=== PATIENT | male | born 1995 | race American Indian/Alaskan Native ===

== ENCOUNTER 2017-09-03 13:29 | Emergency (ER) | payer MEDICAID ==
[2017-09-03 13:49] VITALS: RESP 18
--- NOTE | 2017-09-03 14:33 | ED PDOC ---
Arrival/HPI - General Chief Complaint: Allergic Reaction Time Seen by Provider: 09/03/17 13:56 Historian: Patient - History of Present Illness Narrative History of Present Illness (Text): 09/03/17 14:30 21yo male with no PMhx who present with complaint of rash to his mid upper back x few days. Also report nausea and vomiting x 4days. States symptoms started s/ p eating out. He denies abdominal pain, diarrhea, constipation, tongue swelling , stridor, urinary symptoms, back pain, fever, neck pain, headache, any other complaint. Past Medical History - Provider Review Nursing Documentation Reviewed: Yes - Infectious Disease Hx of Infectious Diseases: None - Psychiatric Hx Substance Use: No Family/Social History - Physician Review Nursing Documentation Reviewed: Yes Family/Social History: Unknown Family HX Smoking Status: Current Some Days Smoker Hx Alcohol Use: No Hx Substance Use: No Allergies/Home Meds Allergies/Adverse Reactions: Allergies No Known Allergies Allergy (Verified 09/03/17 13:50) Review of Systems - Physician Review All systems were reviewed & negative as marked: Yes - Review of Systems Constitutional: Normal Eyes: Normal ENT: Normal Respiratory: Normal Cardiovascular: Normal Gastrointestinal: Nausea, Vomiting. absent: Abdominal Pain, Constipation, Diarrhea, Hematochezia, Hematemesis Genitourinary Male: Normal Musculoskeletal: Normal Skin: Rash, Pruritis Neurological: Normal Endocrine: Normal Hemo/Lymphatic: Normal Psychiatric: Normal Physical Exam Vital Signs Reviewed: Yes Vital Signs Temp Pulse Resp BP Pulse Ox 09/03/17 15:32 98.0 F 65 18 121/73 100 09/03/17 15:06 65 18 121/73 98 09/03/17 13:44 98 F 63 18 122/79 99 Temperature: Afebrile Blood Pressure: Normal Pulse: Regular Respiratory Rate: Normal Appearance: Positive for: Well-Appearing, Non-Toxic, Comfortable Pain Distress: None Mental Status: Positive for: Alert and Oriented X 3 - Systems Exam Head: Present: Atraumatic, Normocephalic Pupils: Present: PERRL Extroacular Muscles: Present: EOMI Conjunctiva: Present: Normal Mouth: Present: Moist Mucous Membranes Neck: Present: Normal Range of Motion Respiratory/Chest: Present: Clear to Auscultation, Good Air Exchange. No: Respiratory Distress, Accessory Muscle Use Cardiovascular: Present: Regular Rate and Rhythm, Normal S1, S2. No: Murmurs Abdomen: Present: Other (soft). No: Tenderness, Distention, Peritoneal Signs, Rebound, Guarding, McBurney's Point Tender, Rovsing's Sign Present Back: Present: Normal Inspection Upper Extremity: Present: Normal Inspection. No: Cyanosis, Edema Lower Extremity: Present: Normal Inspection. No: Edema Neurological: Present: GCS=15, CN II-XII Intact, Speech Normal Skin: Present: Warm, Dry, Rashes (Scaly raised patchy noted on mid upper back), Normal Color Psychiatric: Present: Alert, Oriented x 3, Normal Insight, Normal Concentration Medical Decision Making ED Course and Treatment: 09/03/17 18:31 PT in ED for stated history. He was able to tolerate PO challenge in ED with antiemesis. He was DC with econazole for the fungal rash on his back. Zofran ODT rx given. Referred to his PMD. - Medication Orders Current Medication Orders: Discontinued Medications Famotidine (Pepcid) 20 mg PO STAT STA Stop: 09/03/17 14:11 Last Admin: 09/03/17 14:20 Dose: 20 mg Ondansetron HCl (Zofran Odt) 4 mg PO STAT STA Stop: 09/03/17 14:10 Last Admin: 09/03/17 14:20 Dose: 4 mg Disposition/Present on Arrival - Present on Arrival Any Indicators Present on Arrival: No History of DVT/PE: No History of Uncontrolled Diabetes: No Urinary Catheter: No History of Decub. Ulcer: No History Surgical Site Infection Following: None - Disposition Have Diagnosis and Disposition been Completed?: Yes Diagnosis: Nausea & vomiting, Tinea corporis Disposition: HOME/ ROUTINE Disposition Time: 15:30 Patient Plan: Discharge Condition: STABLE Discharge Instructions (ExitCare): Nausea and Vomiting, Adult, Ringworm (DC) Additional Instructions: Follow up with your Doctor Return to ED for any new or worsening symptoms Prescriptions: Econazole 1% [Spectazole Cr] 15 gm EXT BID #1 tube Famotidine [Pepcid] 20 mg PO DAILY #15 tab Ondansetron ODT [Zofran ODT] 4 mg PO Q6 #6 odt Referrals: [facility] at [facility] [place] [Outside] - Follow up with primary Forms: [employer] (Lao)
[2017-09-03 15:07] VITALS: BP 121/73; PULSE 65
[2017-09-03 15:33] VITALS: TEMP 98; O2SAT 100
== END 2017-09-03 15:33 | disposition home or self-care (01) ==
LOC: ED 13:29 → MERGE 13:29 → ED 15:33
DX: R11.2 Nausea with vomiting, unspecified (principal); B35.4 Tinea corporis

== ENCOUNTER 2017-10-05 13:38 | Emergency (ER) | payer MEDICAID ==
[2017-10-05] MEDS ORDERED: Lidocaine 1% Inj (20ml) IJ STA (14:23)
[2017-10-05 14:52] VITALS: BMI 26.4
--- NOTE | 2017-10-05 14:55 | ED PDOC ---
Arrival/HPI - General Chief Complaint: Abnormal Skin Integrity Time Seen by Provider: 10/05/17 14:03 Historian: Patient - History of Present Illness Narrative History of Present Illness (Text): you were treated in the ED today for uptodate tetanus in the past 5 years and possible unknown type insect bite with right upper area of redness/swelling and otherwise without any nausea/vomiting/headache/dizziness/difficulty breathing/ chest pain/abdomen pain/numbness/tingling/loss of limb function/pain with urination. 10/05/17 14:57 Time/Duration: Other (several days) Symptom Onset: Gradual Symptom Course: Worsening Quality: Aching Severity Level: 1 Activities at Onset: Rest Context: Sitting Past Medical History - Provider Review Nursing Documentation Reviewed: Yes - Travel History Have you recently traveled outside [place] w/in the past 3 mons?: No - Infectious Disease Hx of Infectious Diseases: None - Psychiatric Hx Substance Use: No - Anesthesia Hx Anesthesia: No Hx Anesthesia Reactions: No Hx Malignant Hyperthermia: No Family/Social History - Physician Review Nursing Documentation Reviewed: Yes Family/Social History: No Known Family HX Smoking Status: Current Some Days Smoker Hx Alcohol Use: No Hx Substance Use: No Allergies/Home Meds Allergies/Adverse Reactions: Allergies No Known Allergies Allergy (Verified 09/03/17 13:50) Review of Systems - Review of Systems Constitutional: Normal Eyes: Normal ENT: Normal Respiratory: Normal Cardiovascular: Normal Gastrointestinal: Normal Genitourinary Male: Normal Musculoskeletal: Normal Skin: Abscess Neurological: Normal Endocrine: Normal Hemo/Lymphatic: Normal Psychiatric: Normal Physical Exam Vital Signs Reviewed: Yes Vital Signs Temp Pulse Resp BP Pulse Ox 10/05/17 13:38 98.3 F 73 16 170/98 H 100 Appearance: Positive for: Well-Appearing, Non-Toxic, Comfortable Pain Distress: None Mental Status: Positive for: Alert and Oriented X 3 - Systems Exam Head: Present: Atraumatic, Normocephalic Pupils: Present: PERRL Extroacular Muscles: Present: EOMI Conjunctiva: Present: Normal Ears: Present: Normal Mouth: Present: Moist Mucous Membranes Pharnyx: Present: Normal Nose (External): Present: Atraumatic Nose (Internal): Present: Normal Inspection Neck: Present: Normal Range of Motion Respiratory/Chest: Present: Clear to Auscultation, Good Air Exchange Cardiovascular: Present: Regular Rate and Rhythm Abdomen: No: Tenderness, Distention, Normal Bowel Sounds, Peritoneal Signs, Rebound, Guarding, McBurney's Point Tender, Rovsing's Sign Present, Hernias, Feeding Tubes, Ostomy Tubes, Mass/Organomegaly, Scars, Other Back: Present: Normal Inspection Upper Extremity: Present: Normal Inspection Lower Extremity: Present: Other (right upper thigh area of mild punctate wound with surrounding swelling/fluctuance with mild redness but without crepitus and otherwise warm/sensation/cap refill and mild discomfort over swelling site but no bony tenderness.) Neurological: Present: GCS=15, CN II-XII Intact, Speech Normal, Motor Func Grossly Intact Skin: Present: Warm, Abscess, Other (see le) Psychiatric: Present: Alert, Oriented x 3, Normal Insight, Normal Concentration Medical Decision Making ED Course and Treatment: you were treated in the ED today for uptodate tetanus in the past 5 years and possible unknown type insect bite but stated not a tick type insect with right upper area of redness/swelling and otherwise without any nausea/vomiting/ headache/dizziness/difficulty breathing/chest pain/abdomen pain/numbness/ tingling/loss of limb function/pain with urination. You were otherwise breathing easily, smiling and talking easily, good strength/sensation, walking easily, clear lungs, no abdomen tenderness, skin; right upper thigh area of mild punctate wound with surrounding swelling/fluctuance with mild redness but without crepitus and otherwise warm/sensation/cap refill and mild discomfort over swelling site but no bony tenderness., no fever temp 98.3, stable heart rate 73, stable breathing rate 16, excellent oxygen level 100% room air, elevated blood pressure 170/98 which we recommend repeat in 2-3 days primary care office to determine further treatment, keflex, motrin, numbing medication/ incision/drainage of right upper thigh area swelling/wound exploration/ irrigation/packing/dressing done in the ED with improvement, discussed with surgical team reconciler who stated you have the option to followup either surgeon - Dr. Fernandez's office, [facility] [place] outpatient clinic or Emergency Department for wound care.counselled to keep wound dry for 2 days with wound packing in place and if surgical clinic/primary clinic visit able to be obtained in 2 days then can have wound care completed there, or can shower/afterwards gently remove packing/dry/replaced packing wick and dressing as instructed and thus discharged home. 1. Recommend keflex as directed for infection control. 2. Recommend motrin as directed for pain control. 3. Recommend follow-up primary care 2-3 days to review symptoms, referral to surgery clinic or primary care or return to the emergency department for further wound care/wound evaluation. 3. If any worsening pain, fever, chills, nausea, vomiting, difficulty breathing, numbness, loss of limb function, pain with urination or any medical condition then return to the ED. procedure note: right upper thigh abscess: numbing medication/incision/drainage of right upper thigh area swelling/wound exploration/irrigation/packing/ dressing done in the ED with improvement/hemostasis/tolerated procedure. d/w surgical corsetier reconciler who stated can fu Dr. Fernandez's office, [facility] [place] outpatient clinic or ED for wound care. 10/05/17 15:34 10/05/17 15:35 Reassessment Condition: Re-examined, Improved - Medication Orders Current Medication Orders: Discontinued Medications Cephalexin Monohydrate (Keflex) 500 mg PO STAT STA PRN Reason: Protocol Stop: 10/05/17 14:23 Last Admin: 10/05/17 15:30 Dose: 500 mg Ibuprofen (Motrin Tab) 800 mg PO STAT STA Stop: 10/05/17 14:24 Last Admin: 10/05/17 15:29 Dose: 800 mg Lidocaine HCl (Lidocaine 1% (20ml)) 0 ml IJ STAT STA Stop: 10/05/17 14:24 Last Admin: 10/05/17 15:29 Dose: 5 ml Comments: adm by Dr. Davis Disposition/Present on Arrival - Present on Arrival Any Indicators Present on Arrival: No History of DVT/PE: No History of Uncontrolled Diabetes: No Urinary Catheter: No History of Decub. Ulcer: No History Surgical Site Infection Following: None - Disposition Have Diagnosis and Disposition been Completed?: Yes Diagnosis: Thigh abscess Disposition: HOME/ ROUTINE Disposition Time: 15:32 Patient Plan: Discharge Condition: IMPROVED Discharge Instructions (ExitCare): Abscess Incision and Drainage (DC) Additional Instructions: you were treated in the ED today for uptodate tetanus in the past 5 years and possible unknown type insect bite but stated not a tick type insect with right upper area of redness/swelling and otherwise without any nausea/vomiting/ headache/dizziness/difficulty breathing/chest pain/abdomen pain/numbness/ tingling/loss of limb function/pain with urination. You were otherwise breathing easily, smiling and talking easily, good strength/sensation, walking easily, clear lungs, no abdomen tenderness, skin; right upper thigh area of mild punctate wound with surrounding swelling/fluctuance with mild redness but without crepitus and otherwise warm/sensation/cap refill and mild discomfort over swelling site but no bony tenderness., no fever temp 98.3, stable heart rate 73, stable breathing rate 16, excellent oxygen level 100% room air, elevated blood pressure 170/98 which we recommend repeat in 2-3 days primary care office to determine further treatment, keflex, motrin, numbing medication/ incision/drainage of right upper thigh area swelling/wound exploration/ irrigation/packing/dressing done in the ED with improvement, discussed with surgical team reconciler who stated you have the option to followup either surgeon - Dr. Fernandez's office, [facility] [place] outpatient clinic or Emergency Department for wound care.counselled to keep wound dry for 2 days with wound packing in place and if surgical clinic/primary clinic visit able to be obtained in 2 days then can have wound care completed there, or can shower/afterwards gently remove packing/dry/replaced packing wick and dressing as instructed and thus discharged home. 1. Recommend keflex as directed for infection control. 2. Recommend motrin as directed for pain control. 3. Recommend follow-up primary care 2-3 days to review symptoms, referral to surgery clinic or primary care or return to the emergency department for further wound care/wound evaluation. 3. If any worsening pain, fever, chills, nausea, vomiting, difficulty breathing, numbness, loss of limb function, pain with urination or any medical condition then return to the ED. Prescriptions: Cephalexin [cephalexin] 500 mg PO Q6 10 Days #40 cap Ibuprofen [Motrin Tab] 800 mg PO Q8 PRN 5 Days #30 tab PRN Reason: pain control Referrals: Mandy Patel MD [Primary Care Provider] - Follow up with primary [facility] [Outside] - Follow up with primary Forms: [employer] (Tamazight), WORK NOTE
[2017-10-05 15:30] VITALS: TEMP 98.3; O2SAT 100
[2017-10-05 16:17] VITALS: BP 154/72; PULSE 71; RESP 18
== END 2017-10-05 16:17 | disposition home or self-care (01) ==
LOC: ED 13:38
DX: L02.415 Cutaneous abscess of right lower limb (principal)

== ENCOUNTER 2018-07-05 14:32 | Emergency (ER) | payer MEDICAID ==
[2018-07-05 14:33] VITALS: BMI 22.3
[2018-07-05 15:18] VITALS: RESP 18; TEMP 98
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
[2018-07-05 17:45] VITALS: BP 145/74; PULSE 82; O2SAT 100
== END 2018-07-05 17:45 | disposition home or self-care (01) ==
LOC: ED 14:32
DX: S31.21XA Laceration without foreign body of penis, initial encounter (principal); X58.XXXA Exposure to other specified factors, initial encounter